=== PATIENT | male | born 1995 | race Caucasian/White ===

== ENCOUNTER 2020-06-08 09:28 | Emergency (ER) | payer BC ==
[2020-06-08] MEDS ORDERED: Sodium Chloride 0.9% 10 ML Syringe FLUSH PRN (09:35)
[2020-06-08] MEDS ORDERED: [UNRECOGNIZED DRUG - OTHER] IV ONE (09:37)
--- NOTE | 2020-06-08 10:05 | EDM.PDOC ---
ED HPI GENERAL MEDICAL PROBLEM - General Chief Complaint: Bite:Animal, Insect Stated Complaint: SNAKE BITE Time Seen by Provider: 06/08/20 09:31 Source of Information: Reports: Patient, Family History Limitations: Reports: No Limitations - History of Present Illness INITIAL COMMENTS - FREE TEXT/NARRATIVE: The patient presents with a snake bite to the right index finger. He has moderate swelling to his entire hand. It does not go past the wrist. He has no other symptoms such as nausea, vomiting, tingling, fever, chills, cough, chest pain, shortness of breath, or abdominal pain. He has no medical problems and his tetanus is up to date. This happened at 8:30 this morning. Onset: Sudden Duration: Hour(s): (1) Quality: Reports: Sharp Severity: Mild Improves with: Reports: None Worsens with: Reports: None Associated Symptoms: Reports: No Other Symptoms Right Hand Pain Score (Numeric/FACES): 7 - Related Data Allergies Allergy/AdvReac Type Severity Reaction Status Date / Time No Known Allergies Allergy Verified 06/08/20 09:43 Home Meds: Home Meds . [No Known Home Meds] 06/08/20 [History] Past Medical History - Past Health History Medical/Surgical History: Denies Medical/Surgical History Social & Family History - Tobacco Use Smoking Status *Q: Never Smoker ED ROS GENERAL - Review of Systems Review Of Systems: See Below Constitutional: Reports: No Symptoms HEENT: Reports: No Symptoms Respiratory: Reports: No Symptoms Cardiovascular: Reports: No Symptoms Endocrine: Reports: No Symptoms GI/Abdominal: Reports: No Symptoms : Reports: No Symptoms Musculoskeletal: Reports: Other (Puncture wound to the right index finger and swelling to his entire hand) ED EXAM, ANIMAL BITE - Physical Exam Exam: See Below Exam Limited By: No Limitations General Appearance: Alert, No Apparent Distress Ears: Normal External Exam Nose: Normal Inspection Head: Atraumatic, Normocephalic Neck: Normal Inspection Respiratory/Chest: No Respiratory Distress, Lungs Clear, Normal Breath Sounds Cardiovascular: Regular Rate, Rhythm, No Edema, No Murmur GI/Abdominal: Soft, Non-Tender, No Organomegaly, No Mass Extremities: Other (puncture wound to the right index finger with moderate edema to the right hand. Good capillary refill and sensation distally.) Course - Vital Signs Last Recorded V/S: Last Vital Signs Temp 98.2 F 06/08/20 10:35 Pulse 75 06/08/20 10:35 Resp 16 06/08/20 10:35 BP 110/57 L 06/08/20 10:35 Pulse Ox 98 06/08/20 10:35 - Orders/Labs/Meds Orders: Active Orders 24 hr Category Date Time Status Cardiac Monitoring [RC] . DIRECTED Care 06/08/20 09:35 Active Peripheral IV Care [RC] . DIRECTED Care 06/08/20 09:35 Active CORONAVIRUS COVID-19 RAPID [MOLEC] Stat Lab 06/08/20 11:16 Received UA RFX KIKO AND CULT IF INDIC [URIN] Stat Lab 06/08/20 11:07 Received Antivenin,Crotalidae Cuong(Ovin) [Crofab] 5 each Med 06/08/20 10:15 Active Sodium Chloride 0.9% [Normal Saline] 250 ml IV ONETIME Sodium Chloride 0.9% [Saline Flush] Med 06/08/20 09:35 Active 10 ml FLUSH ASDIRECTED PRN Peripheral IV Insertion Adult [OM.PC] Stat Oth 06/08/20 09:35 Ordered Medication Orders Crotalidae Polyvalent Antivenin 5 each/ Sodium Chloride 250 mls @ 25 mls/hr IV ONETIME ONE Stop: 06/08/20 20:14 Last Admin: 06/08/20 10:22 Dose: 25 mls/hr Documented by: ADRIANO Sodium Chloride (Saline Flush) 10 ml FLUSH ASDIRECTED PRN PRN Reason: Keep Vein Open Last Admin: 06/08/20 10:44 Dose: 10 ml Documented by: NAOMI Labs: Laboratory Tests 06/08/20 06/08/20 06/08/20 Range/Units 09:30 09:30 09:30 WBC 6.34 (4.23-9.07) K/mm3 RBC 5.01 (4.63-6.08) M/mm3 Hgb 15.5 (13.7-17.5) gm/dl Hct 45.3 (40.1-51.0) % MCV 90.4 (79.0-92.2) fl MCH 30.9 (25.7-32.2) pg MCHC 34.2 (32.2-35.5) g/dl RDW Std Deviation 41.9 (35.1-43.9) fL Plt Count 273 (163-337) K/mm3 MPV 9.5 (9.4-12.3) fl Neut % (Auto) 61.5 (34.0-67.9) % Lymph % (Auto) 30.3 (21.8-53.1) % Menard % (Auto) 7.1 (5.3-12.2) % Eos % (Auto) 0.6 L (0.8-7.0) Baso % (Auto) 0.3 (0.1-1.2) % Neut # (Auto) 3.90 (1.78-5.38) K/mm3 Lymph # (Auto) 1.92 (1.32-3.57) K/mm3 Menard # (Auto) 0.45 (0.30-0.82) K/mm3 Eos # (Auto) 0.04 (0.04-0.54) K/mm3 Baso # (Auto) 0.02 (0.01-0.08) K/mm3 PT 11.5 (9.7-11.7) SECONDS INR 1.08 APTT 26 (22-31) SECONDS Fibrinogen (187-446) mg/dL D-Dimer, Quantitative 0.22 (0.19-0.50) mg/L Sodium 140 (136-145) mEq/L Potassium 3.3 L (3.5-5.1) mEq/L Chloride 102 (98-107) mEq/L Carbon Dioxide 28 (21-32) mEq/L Anion Gap 13.3 (5-15) BUN 16 (7-18) mg/dL Creatinine 1.1 (0.7-1.3) mg/dL Est Cr Clr Drug Dosing TNP Estimated GFR (MDRD) > 60 (>60) mL/min BUN/Creatinine Ratio 14.5 (14-18) Glucose 86 (74-106) mg/dL Calcium 9.0 (8.5-10.1) mg/dL Total Bilirubin 0.6 (0.2-1.0) mg/dL AST 22 (15-37) U/L ALT 23 (16-63) U/L Alkaline Phosphatase 63 (46-116) U/L Total Protein 8.1 (6.4-8.2) g/dl Albumin 4.7 (3.4-5.0) g/dl Globulin 3.4 gm/dL Albumin/Globulin Ratio 1.4 (1-2) // Range/Units 09:30 WBC (4.23-9.07) K/mm3 RBC (4.63-6.08) M/mm3 Hgb (13.7-17.5) gm/dl Hct (40.1-51.0) % MCV (79.0-92.2) fl MCH (25.7-32.2) pg MCHC (32.2-35.5) g/dl RDW Std Deviation (35.1-43.9) fL Plt Count (163-337) K/mm3 MPV (9.4-12.3) fl Neut % (Auto) (34.0-67.9) % Lymph % (Auto) (21.8-53.1) % Menard % (Auto) (5.3-12.2) % Eos % (Auto) (0.8-7.0) Baso % (Auto) (0.1-1.2) % Neut # (Auto) (1.78-5.38) K/mm3 Lymph # (Auto) (1.32-3.57) K/mm3 Menard # (Auto) (0.30-0.82) K/mm3 Eos # (Auto) (0.04-0.54) K/mm3 Baso # (Auto) (0.01-0.08) K/mm3 PT (9.7-11.7) SECONDS INR APTT (22-31) SECONDS Fibrinogen 285 (187-446) mg/dL D-Dimer, Quantitative (0.19-0.50) mg/L Sodium (136-145) mEq/L Potassium (3.5-5.1) mEq/L Chloride (98-107) mEq/L Carbon Dioxide (21-32) mEq/L Anion Gap (5-15) BUN (7-18) mg/dL Creatinine (0.7-1.3) mg/dL Est Cr Clr Drug Dosing Estimated GFR (MDRD) (>60) mL/min BUN/Creatinine Ratio (14-18) Glucose (74-106) mg/dL Calcium (8.5-10.1) mg/dL Total Bilirubin (0.2-1.0) mg/dL AST (15-37) U/L ALT (16-63) U/L Alkaline Phosphatase (46-116) U/L Total Protein (6.4-8.2) g/dl Albumin (3.4-5.0) g/dl Globulin gm/dL Albumin/Globulin Ratio (1-2) Meds: Medications Generic Name Dose Route Start Last Admin Trade Name Freq PRN Reason Stop Dose Admin Crotalidae Polyvalent 250 mls @ 25 mls/hr 06/08/20 10:15 06/08/20 10:22 Antivenin 5 each/ Sodium IV 06/08/20 20:14 25 mls/hr Chloride ONETIME ONE Administration Sodium Chloride 10 ml 06/08/20 09:35 06/08/20 10:44 Saline Flush FLUSH 10 ml ASDIRECTED PRN Administration Keep Vein Open - Re-Assessments/Exams Free Text/Narrative Re-Assessment/Exam: 06/08/20 10:07 I ordered an IV saline lock and labs. I consulted poison control and they did recommend crofab 4 to 6 units IV. I ordered 5 units. The concern was that he has swelling past 2 joints. 06/08/20 11:04 All of his labs including a CBC and CMP look good. 06/08/20 11:05 His PT, INR, PTT, fibrinogen, and D-dimer is negative. He is still doing good. He has no systemic symptoms and the swelling has not gotten worse. We do not have any beds available here. I have called [facility] in [place] and they are checking if they have beds. 06/08/20 11:32 They called me back and I talked to Dr Jaeger and he accepted the patient. Departure - Departure Time of Disposition: 11:35 Disposition: DC/Tfer to [facility] Condition: Fair Clinical Impression: Rattlesnake bite Qualifiers: Encounter type: initial encounter Injury intent: accidental or unintentional Qu alified Code(s): T63.011A - Toxic effect of rattlesnake venom, accidental (unintentional), initial encounter - Discharge Information Referrals: Vince Tirado MD [Primary Care Provider] - Forms: ED Department Discharge Sepsis Event Note (ED) - Evaluation Sepsis Screening Result: No Definite Risk - Focused Exam Vital Signs: Vital Signs Temp Pulse Resp BP Pulse Ox 06/08/20 10:35 98.2 F 75 16 110/57 L 98 06/08/20 09:43 98.1 F 87 16 117/71 99 - My Orders Last 24 Hours: My Active Orders 06/08/20 09:35 Cardiac Monitoring [RC] . DIRECTED Peripheral IV Care [RC] . DIRECTED Sodium Chloride 0.9% [Saline Flush] 10 ml FLUSH ASDIRECTED PRN Peripheral IV Insertion Adult [OM.PC] Stat 06/08/20 10:15 Antivenin,Crotalidae Cuong(Ovin) [Crofab] 5 each Sodium Chloride 0.9% [Normal Saline] 250 ml IV ONETIME 06/08/20 11:07 UA RFX KIKO AND CULT IF INDIC [URIN] Stat 06/08/20 11:16 CORONAVIRUS COVID-19 RAPID [MOLEC] Stat - Assessment/Plan Last 24 Hours: My Active Orders 06/08/20 09:35 Cardiac Monitoring [RC] . DIRECTED Peripheral IV Care [RC] . DIRECTED Sodium Chloride 0.9% [Saline Flush] 10 ml FLUSH ASDIRECTED PRN Peripheral IV Insertion Adult [OM.PC] Stat 06/08/20 10:15 Antivenin,Crotalidae Cuong(Ovin) [Crofab] 5 each Sodium Chloride 0.9% [Normal Saline] 250 ml IV ONETIME 06/08/20 11:07 UA RFX KIKO AND CULT IF INDIC [URIN] Stat 06/08/20 11:16 CORONAVIRUS COVID-19 RAPID [MOLEC] Stat
[2020-06-08] MEDS ORDERED: ANTIVENIN CROTALIDAE FAB IV ONE (10:15)
[2020-06-08] MEDS ORDERED: SODIUM CHLORIDE IV ONE (10:15)
== END 2020-06-08 12:00 ==
LOC: JD.ED 09:28
DX: T63.011A Toxic effect of rattlesnake venom, accidental (unintentional), initial encounter (principal); Z20.828 Contact with and (suspected) exposure to other viral communicable diseases
CPT/HCPCS: 36415; 80053; 81003; 85025; 85379; 85384; 85610; 85730; 87635; 96365; 96366; 99285; J0840; J7050; 99284; U0002